=== PATIENT | female | born 1945 | race Caucasian/White ===

== ENCOUNTER → 2018-11-09 | Day surgery (SDC) | payer OTHER, MEDICARE ==
[~2018-11-09] MED LIST: ADVAIR 100-501 EACH; BALANCED SALT SOLN (OPTH) 15 ML BTL IO ONE; FENTANYL CITRATE/PF 100MCG/2 ML INJ ONE; GELATIN SPONGE 12-7MM ONE; HYZAAR 100-12.1 EACH; LIDOCAINE 2%/ EPINEPHRINE 20ML MDV ONE; LIDOCAINE HCL 2% LOCAL INJ 5 ML SDV VIAL INJ ONE; MIDAZOLAM HCL 2 MG/2 ML VIAL ONE; MONTELUKAST SOD10 MG PO; NEOMYCIN/POLYMYXIN/DEX (OPTH) 3.5 GM TUBE ONE; OMEPRAZOLE40 MG; PROAIR HFA INH8.5 GM; PROPOFOL IV EMULSION 10 MG/ML 20 ML VIAL ONE; SUCRALFATE1 GM PO; [UNRECOGNIZED DRUG - OTHER]
--- OUTSIDE RECORDS SUMMARY | 2018-11-09 10:27 | XMS REPORT | Summary of Care ---
Author Author [facility] Address Unknown Phone Unavailable Encounter HQ Encntr_alimarialuisa([facility]) [id number] Date(s): 10/31/17 - 11/29/17 [facility] Discharge Disposition: Home or Self Care Attending Physician: Sally Hughes MD Vital Signs No data available for this section Problem List No data available for this section Allergies, Adverse Reactions, Alerts No data available for this section Medications No data available for this section Results No data available for this section Immunizations No data available for this section Procedures No data available for this section Social History No data available for this section Assessment and Plan No data available for this section
--- OUTSIDE RECORDS SUMMARY | 2018-11-09 10:27 | XMS REPORT | Summary of Care ---
Author Author [facility] Address Unknown Phone Unavailable Encounter HQ [email or web address]([facility]) [id number] Date(s): 10/31/17 - 11/29/17 [facility] Encounter Diagnosis Sciatica, unspecified side (Final) - 12/03/17 Low back pain (Final) - Stiffness of unspecified joint, not elsewhere classified (Final) - Muscle weakness (generalized) (Final) - Abnormal posture (Final) - Essential (primary) hypertension (Final) - Spondylolisthesis, lumbar region (Final) - Discharge Disposition: Home or Self Care Attending [...]
--- OUTSIDE RECORDS SUMMARY | 2018-11-09 10:27 | XMS REPORT | Continuity of Care Document ---
Demographics Preferred Language Unknown Marital Status Unknown Tenriism Affiliation Unknown Race Unknown Ethnic Group Unknown Author Author [facility] Interface Address Unknown Phone Unavailable Problems Problem Status Onset Date Classification Date Reported Comments Source Sciatica, unspecified side 02/07/2018 05/09/2018 [facility] LUMBAR Active 10/24/2017 [facility] Low back pain 05/09/2018 [facility] Stiffness of unspecified joint, not elsewhere classified 05/09/2018 [facility] Muscle weakness 05/09/2018 [facility] Localized edema 04/06/2018 [facility] Other lack of coordination 04/06/2018 [facility] Abnormal posture 05/09/2018 [facility] Other abnormalities of gait and mobility 04/06/2018 [facility] Essential hypertension 03/07/2018 [facility] Spondylolisthesis, lumbar region 03/07/2018 [facility] Medications Medication Details Route Status Patient Instructions Ordering Provider Order Date Source Allergies, Adverse Reactions, Alerts Substance Category Reaction Severity Reaction type Status Date Reported Comments Source Immunizations Immunization Date Given Site Status Last Updated Comments Source Results Order Name Results Value Reference Range Date Interpretation Comments Source Vital Signs Vital Sign Value Date Comments Source Encounters Location Location Details Encounter Type Encounter Number Reason For Visit Attending Provider ADM Date DC Date Status Source [facility] [id number] Sally Hughes 10/31/2017 11/30/2017 [facility] [id number] Sally Hughes 11/30/2017 12/30/2017 [facility] [id number] Sally Hughes 01/02/2018 02/01/2018 [facility] Procedures Procedure Code Date Perfomer Comments Source
--- OUTSIDE RECORDS SUMMARY | 2018-11-09 10:27 | XMS REPORT | Summary of Care ---
Author Author [facility] Address Unknown Phone Unavailable Encounter Noahchristinalorri([facility]) [id number] Date(s): 11/30/17 - 12/29/17 [facility] Encounter Diagnosis Sciatica, unspecified side (Final) - 01/02/18 Low back pain (Final) - Stiffness of unspecified joint, not elsewhere classified (Final) - Muscle weakness (generalized) (Final) - Localized edema (Final) - Other lack of coordination (Final) - Abnormal posture (Final) - Other abnormalities of gait and mobility (Final) - Discharge Disposition: Home or Self [...]
--- OUTSIDE RECORDS SUMMARY | 2018-11-09 10:27 | XMS REPORT | Summary of Care ---
Author Author [facility] Address Unknown Phone Unavailable Encounter HQ Noahntr_shaheed([facility]) [id number] Date(s): 01/02/18 - 01/31/18 [facility] Encounter Diagnosis Sciatica, unspecified side (Final) - 02/06/18 Low back pain (Final) - Stiffness of unspecified joint, not elsewhere classified (Final) - Muscle weakness (generalized) (Final) - Abnormal posture (Final) - Discharge Disposition: Home or Self [...]
[2018-11-09 13:50] VITALS: BP 126/63
== END | disposition home or self-care (01) ==
LOC: OR 10:23
PROVIDERS: ATTEND Ophthalmology
DX: H02.834 Dermatochalasis of left upper eyelid (principal); H02.831 Dermatochalasis of right upper eyelid; I10 Essential (primary) hypertension; G47.30 Sleep apnea, unspecified; K21.9 Gastro-esophageal reflux disease without esophagitis; F41.9 Anxiety disorder, unspecified; Z91.048 Other nonmedicinal substance allergy status; Z88.6 Allergy status to analgesic agent
CPT/HCPCS: 15823; J2001 ×2; J2250; J2704